=== PATIENT | female | born 1965 | race African-American/Black ===

== ENCOUNTER 2025-01-07 15:18 | Emergency (ER) | payer SELFPAY ==
[~2025-01-07] VITALS: Ht 162.6 cm; Wt 85.0 kg
[2025-01-07 15:24] VITALS: TEMP 36.8; O2SAT 98
[2025-01-07 18:13] VITALS: BP 133/88; PULSE 64; RESP 18; O2SAT 99
== END 2025-01-07 18:51 | disposition home or self-care (01) ==
LOC: ER 15:18
DX: M25.562 Pain in left knee (principal); M25.462 Effusion, left knee
CPT/HCPCS: 73560; 99283